=== PATIENT | male | born 1980 | race Caucasian/White ===

== ENCOUNTER 2023-12-24 07:11 | Day surgery (SDC) | payer OTHER ==
[~2023-12-24 07:11] MED LIST: Midazolam 1 MG/ML 2 ML SDV ONE; Propofol 200 MG/20 ML SDV ONE; fentaNYL 100 MCG/2 ML SDV ONE
[2023-12-24] MEDS: Lactated Ringers 1,000 ML IV SCH (07:25)
[2023-12-24] MEDS ORDERED: Ondansetron 4 MG/2 ML SDV IVPUSH PRN (07:36)
[2023-12-24] MEDS ORDERED: HYDROmorphone 0.5 MG/0.5 ML Syringe IVPUSH PRN (07:36)
[2023-12-24] MEDS ORDERED: fentaNYL 100 MCG/2 ML SDV IVPUSH PRN (07:36)
[2023-12-24] MEDS ORDERED: Ondansetron 4 MG/2 ML SDV ONE (07:42)
[2023-12-24] MEDS ORDERED: Propofol 200 MG/20 ML SDV ONE (07:55)
== END 2023-12-24 09:39 | disposition home or self-care (01) ==
LOC: JD.SDS 07:11
PROVIDERS: ATTEND Surgery
DX: K44.9 Diaphragmatic hernia without obstruction or gangrene (principal); K21.9 Gastro-esophageal reflux disease without esophagitis; I10 Essential (primary) hypertension; Z79.899 Other long term (current) drug therapy
CPT/HCPCS: 43239; J2250; J2405; J2704; J3010; J7120; 00731

== ENCOUNTER 2024-01-12 09:07 | Inpatient (IN) | payer OTHER ==
[~2024-01-12 09:07] MED LIST changes: +Dexamethasone 4 MG/ML 5 ML MDV ONE; +Lactated Ringers 1,000 ML IV SCH; +Lidocaine 1% 5 ML VIAL ONE; -Midazolam 1 MG/ML 2 ML SDV ONE; +Ondansetron 4 MG/2 ML SDV ONE; +Rocuronium 50 MG/5 ML Vial ONE; +Sodium Chloride 0.9% 10 ML Syringe FLUSH PRN; +ceFAZolin 2 GM Vial ONE; -fentaNYL 100 MCG/2 ML SDV ONE; +fentaNYL 250 MCG/5 ML SDV ONE
[2024-01-12] MEDS: Lactated Ringers 1,000 ML IV SCH ×2 (09:20→22:27)
[2024-01-12] MEDS ORDERED: Ondansetron 4 MG/2 ML SDV IVPUSH PRN (09:40)
[2024-01-12] MEDS ORDERED: HYDROmorphone 0.5 MG/0.5 ML Syringe IVPUSH PRN (09:40)
[2024-01-12] MEDS ORDERED: fentaNYL 100 MCG/2 ML SDV IVPUSH PRN (09:40)
[2024-01-12] MEDS: Bupivacaine 0.5% 30 ML SDV ONE (10:17)
[2024-01-12] MEDS: EPINEPHrine 1 MG/ML SDV ONE (10:17)
[2024-01-12] MEDS ORDERED: Sugammadex Sodium 200 MG/2 ML VIAL IV ONE (10:34)
[2024-01-12] MEDS ORDERED: Rocuronium 50 MG/5 ML Vial ONE (10:34)
[2024-01-12] MEDS ORDERED: dexmedeTOMIDine HCl 200 MCG/2 ML SDV ONE (10:34)
[2024-01-12] MEDS ORDERED: Lactated Ringers 1,000 ML IV ONE ×2 (11:00→13:00)
[2024-01-12] MEDS ORDERED: HYDROmorphone 0.5 MG/0.5 ML Syringe ONE (12:01)
[2024-01-12] MEDS ORDERED: Acetaminophen 325 MG Tab PO PRN (13:29)
[2024-01-12] MEDS: oxyCODONE 5 MG Tab PO PRN (16:27)
[2024-01-12] MEDS: Ondansetron 4 MG Tab.DIS PO PRN (16:27)
[2024-01-12] MEDS: Sodium Chloride 0.9% 10 ML Syringe FLUSH SCH (18:12)
[2024-01-12] MEDS: HYDROmorphone 0.5 MG/0.5 ML Syringe IVPUSH PRN (18:58)
[2024-01-12] MEDS: Amitriptyline 10 MG Tab PO SCH (21:30)
[2024-01-13 04:59] LABS: BASOPHILS PERCENT AUTO 0.1 % (0.0-1.0); EOSINOPHILS PERCENT AUTO 0.1 % (0.0-6.0); HEMATOCRIT 37.2 % (42.0-52.0); HEMOGLOBIN 12.4 gm/dl (14.0-18.0); IMMATURE GRAN ABSOLUTE AUTO 0.09 K/mm3 (0.00-0.05); IMMATURE GRAN PERCENT AUTO 0.5 % (0.0-0.4); LYMPHOCYTES ABSOLUTE AUTO 1.4 K/mm3 (1.0-4.8); LYMPHOCYTES PERCENT AUTO 7.2 % (24.0-44.0); MEAN CORPUSCULAR HEMOGLOBIN 27.4 pg (28.0-32.0); MEAN CORPUSCULAR HGB CONC 33.3 g/dl (32.0-36.0); MEAN CORPUSCULAR VOLUME 82.3 fl (83.0-99.0); MEAN PLATELET VOLUME 10.3 fl (9.4-12.4); MONOCYTES PERCENT AUTO 5.3 % (0.0-8.0); NEUTROPHILS ABSOLUTE AUTO 16.5 K/mm3 (1.8-7.7); NEUTROPHILS PERCENT AUTO 86.8 % (41.0-71.0); PLATELET COUNT,PLT 287 K/mm3 (150-400); RED BLOOD CELL COUNT 4.52 M/mm3 (4.52-5.90); WHITE BLOOD CELL COUNT,WBC 18.98 K/mm3 (3.9-11.3)
[2024-01-13 05:15] LABS: ANION GAP 14.5 (5-15); CALCIUM 8.6 mg/dL (8.5-10.1); EST CRCL DRUG DOSING (CG) 108.23 mL/min; POTASSIUM,K 4.5 mEq/L (3.5-5.1)
[2024-01-13] MEDS ORDERED: Sodium Chloride 0.9% 10 ML Syringe FLUSH PRN (07:56)
[2024-01-13] MEDS: Enoxaparin 40 MG/0.4 ML Syringe SUBCUT SCH (08:41)
[2024-01-13] MEDS: buPROPion 150 MG Tab.ER PO SCH (08:42)
[2024-01-13] MEDS: Rosuvastatin 10 MG Tab PO SCH (08:42)
[2024-01-13] MEDS: Promethazine 25 MG Tab PO PRN (11:53)
[2024-01-13] MEDS: HYDROmorphone 1 MG/ML Syringe IVPUSH PRN (18:54)
[2024-01-14 04:38] LABS: BASOPHILS PERCENT AUTO 0.3 % (0.0-1.0); EOSINOPHILS ABSOLUTE AUTO 0.1 K/mm3 (0.0-0.4); EOSINOPHILS PERCENT AUTO 0.5 % (0.0-6.0); HEMATOCRIT 34.7 % (42.0-52.0); HEMOGLOBIN 11.7 gm/dl (14.0-18.0); IMMATURE GRAN ABSOLUTE AUTO 0.03 K/mm3 (0.00-0.05); IMMATURE GRAN PERCENT AUTO 0.3 % (0.0-0.4); LYMPHOCYTES ABSOLUTE AUTO 2.6 K/mm3 (1.0-4.8); MEAN CORPUSCULAR HEMOGLOBIN 27.9 pg (28.0-32.0); MEAN CORPUSCULAR HGB CONC 33.7 g/dl (32.0-36.0); MEAN CORPUSCULAR VOLUME 82.6 fl (83.0-99.0); MEAN PLATELET VOLUME 10.1 fl (9.4-12.4); MONOCYTES ABSOLUTE AUTO 0.9 K/mm3 (0.0-0.8); MONOCYTES PERCENT AUTO 7.9 % (0.0-8.0); NEUTROPHILS ABSOLUTE AUTO 7.3 K/mm3 (1.8-7.7); PLATELET COUNT,PLT 224 K/mm3 (150-400); WHITE BLOOD CELL COUNT,WBC 10.83 K/mm3 (3.9-11.3)
[2024-01-14 04:58] LABS: ANION GAP 6.7 (5-15); CALCIUM 8.2 mg/dL (8.5-10.1); EST CRCL DRUG DOSING (CG) 108.23 mL/min; POTASSIUM,K 3.7 mEq/L (3.5-5.1)
[2024-01-14] MEDS ORDERED: Polyethylene Glycol 3350 Powder 17 GM Packet PO PRN (10:01)
[2024-01-14] MEDS: Docusate Sodium 100 MG Cap PO PRN (10:15)
[2024-01-14] MEDS: Simethicone 80 MG Tab.Chew PO PRN (10:15)
== END 2024-01-14 12:15 | disposition home or self-care (01) | DRG 328 ==
LOC: JD.MS 09:07
PROVIDERS: ADMIT Surgery; ATTEND Surgery
PROC: 0DV44ZZ Restriction of Esophagogastric Junction, Percutaneous Endoscopic Approach (ICD-10-PCS; 2024-01-12)
PROC: 0D964ZZ Drainage of Stomach, Percutaneous Endoscopic Approach (ICD-10-PCS; 2024-01-12)
PROC: 0DQ64ZZ Repair Stomach, Percutaneous Endoscopic Approach (ICD-10-PCS; principal; 2024-01-12 11:00)
PROC: 0BQT4ZZ Repair Diaphragm, Percutaneous Endoscopic Approach (ICD-10-PCS; 2024-01-12 11:00)
DX: K44.9 Diaphragmatic hernia without obstruction or gangrene (principal); K21.9 Gastro-esophageal reflux disease without esophagitis; F41.9 Anxiety disorder, unspecified; G43.909 Migraine, unspecified, not intractable, without status migrainosus; F32.A Depression, unspecified; E78.00 Pure hypercholesterolemia, unspecified; R73.9 Hyperglycemia, unspecified; K59.09 Other constipation; I10 Essential (primary) hypertension; Z79.82 Long term (current) use of aspirin; Z79.899 Other long term (current) drug therapy
CPT/HCPCS: 36415; 51798; 80048; 85025; A9270-GY; J0171; J0665; J0690; J1100; J1170; J1596; J1650; J2405; J2704; J3010; J3490; J7120; J8597